=== PATIENT | female | born 1990 | race African-American/Black ===

== ENCOUNTER 2018-06-30 12:03 | Observation (INO) | payer BC, OTHER ==
--- NOTE | 2018-06-30 12:58 | PDOC ---
History of Present Illness - General Chief Complaint: Vaginal Bleeding Stated Complaint: SENT BY PCP VAGINAL BLEEDING Time Seen by Provider: 06/30/18 12:46 History Source: Patient Past History - Past Medical History Allergies/Adverse Reactions: Allergies Allergy/AdvReac Type Severity Reaction Status Date / Time fruits Allergy Uncoded 06/30/18 12:09 COPD: No Other medical history: uteterine fibroids - Surgical History Abdominal Surgery: Yes (lipo) - Suicide/Smoking/Psychosocial Hx Smoking History: Never smoked Information on smoking cessation initiated: No Hx Alcohol Use: No Drug/Substance Use Hx: No Review of Systems - Review of Systems Constitutional: Yes: Weakness Respiratory: No: Shortness of Breath ABD/GI: No: Nausea, Vomiting, Abdominal cramping *Physical Exam - Vital Signs Last Vital Signs Temp Pulse Resp BP Pulse Ox 98.4 F 98 H 18 138/94 100 06/30/18 12:06 06/30/18 12:06 06/30/18 12:06 06/30/18 12:06 06/30/18 12:06 - Physical Exam General Appearance: Yes: Appropriately Dressed. No: Apparent Distress HEENT: positive: Normal Voice Neck: positive: Supple Respiratory/Chest: negative: Respiratory Distress Gastrointestinal/Abdominal: positive: Soft. negative: Tender Integumentary: positive: Dry, Warm Neurologic: positive: Fully Oriented, Alert, Normal Mood/Affect ED Treatment Course - LABORATORY CBC & Chemistry Diagram: 06/30/18 13:18 06/30/18 13:18 Medical Decision Making - Medical Decision Making 06/30/18 12:56 28 yo F, , dx w/ fibroids on US > 2 weeks ago (had 6 fibroids per pt), anemia (no transfusion), not on iron pills but currently taking taking OTC iron supplements, ow here w/ menorrhagia. States she got her menses at normal time but bleeding for > 1 week (usually last for 5 days). States she is using ~6-7 pads/24 hrs. Reports weakness since yesterday. No dizziness, syncope, SOB or sig abd pain. States she walked into her PEDIATRIC CLINICAL NURSE SPECIALIST this a.m. and was sent to the ED see exam Weakness in setting of menorrhagia Dx w/ multiple fibroids on recent US Taking OTC iron supplements for known anemia (no transfusion) Stable and well dulce -labs pending 06/30/18 13:06 06/30/18 13:47 Hgb 7.6. Case d/w Dr Rogers of PEDIATRIC CLINICAL NURSE SPECIALIST who wants patient to be transfused with 2 units. Pt made aware. Will transfuse and admit to OBs given symptomatic and 1st time transfused *DC/Admit/Observation/Transfer Diagnosis at time of Disposition: DUB (dysfunctional uterine bleeding), Fibroids Anemia Qualifiers: Anemia type: unspecified type Qualified Code(s): D64.9 - Anemia, unspecified - Discharge Dispostion Condition at time of disposition: Fair Decision to Admit order: Yes - Referrals - Patient Instructions - Post Discharge Activity
[2018-06-30 13:26] LABS: BASO % 0.9 % (0-2.0); EOS % 5.3 % (0-4.5); HEMATOCRIT 25.1 % (32.4-45.2); HEMOGLOBIN 7.6 GM/dL (10.7-15.3); LYMPH % 53.7 % (8-40); MCHC 30.3 g/dl (32.0-36.0); MEAN CELL VOLUME 64.7 fl (80-96); MEAN PLT VOLUME 6.9 fl (7.5-11.1); MONO % 8.4 % (3.8-10.2); NEUT % 31.7 % (42.8-82.8); PLATELET COUNT 611 K/MM3 (134-434); RBC 3.88 M/mm3 (3.60-5.2); WHITE BLOOD COUNT 4.9 K/mm3 (4.0-10.0)
[2018-06-30 13:29] LABS: MCH 19.6 pg (25.7-33.7)
[2018-06-30 13:41] LABS: INR 1.13 (0.83-1.09); PROTHROMBIN TIME (PATIENT) 13.4 SEC (9.7-13.0)
[2018-06-30 13:53] LABS: ALBUMIN 3.5 g/dl (3.4-5.0); ALK PHOS 48 U/L (45-117); ANION GAP 6 MMOL/L (8-16); BILIRUBIN,TOTAL 0.1 mg/dL (0.2-1); BLOOD UREA NITROGEN 9 mg/dL (7-18); CALCIUM 8.9 mg/dL (8.5-10.1); CHLORIDE 106 mmol/L (98-107); CO2 27 mmol/L (21-32); CREATININE 0.5 mg/dL (0.55-1.3); GLUCOSE,RANDOM 88 mg/dL (74-106); POTASSIUM 4.1 mmol/L (3.5-5.1); SGOT/AST 19 U/L (15-37); SGPT/ALT 23 U/L (13-61); SODIUM 140 mmol/L (136-145); TOT PROT 7.7 g/dl (6.4-8.2)
[2018-06-30 14:32] LABS: ANISOCYTOSIS 2+; MACROCYTOSIS 0; OVALOCYTE 2+; PLATELET ESTIMATE INCREASED
[2018-06-30] MEDS ORDERED: SENNOSIDES 8.6MG TABLET (FP) PO PRN (17:18)
[2018-06-30] MEDS ORDERED: ACETAMINOPHEN 325 MG TABLET (FP) PO PRN (17:18)
[2018-06-30] MEDS ORDERED: DOCUSATE SODIUM 100 MG CAPSULE (FP) PO PRN (17:18)
[2018-06-30] MEDS ORDERED: LACTATED RINGERS SOLUTION 1,000 ML IV SCH (17:30)
--- NOTE | 2018-06-30 17:30 | HP ---
Admitting History and Physical - Admission Chief Complaint: symptomatic anemia History of Present Illness: 28 year old F with h/o uterine fibroids presents to ED for evaluation as recommended by her OBGYN due to persistent vaginal bleeding. Ms. Pittman reports symptoms began with her last menstrual cycle on May 24 where she bled for 21 continuous days. She was evaluated by ACCOUNT SERVICES REPRESENTATIVE who prescribed Tranexamic 650mg 2tabs TID to promote cessation of excessive bleeding. Her bleeding resolved for 7days, but returned on 06/29 and was associated with pelvic pain, dizziness, fatigue, SOB and the passage of large clots. Pt phoned her ACCOUNT SERVICES REPRESENTATIVE who recommended ED visit. In ED: Vitals: BP 138/94, HR 98, RR 18, T 98.4, O2sat 100% H/H 7.6/25.1 Ed provider reviewed case d/w Dr Rogers from ACCOUNT SERVICES REPRESENTATIVE who recommends admission for 2 PRBC infusion History Source: Patient Limitations to Obtaining History: No Limitations - Past Medical History ...LMP: 06/30/18 ...: No (serum preg test: negative) - Past Surgical History Additional Past Surgical History: Liposuction and tummy tuck 2014 Right rotator cuff repair 2013 2013 breast reduction 2010 - Smoking History Smoking history: Never smoked Have you smoked in the past 12 months: No - Alcohol/Substance Use Hx Alcohol Use: Yes (socially) History of Substance Use: reports: None - Social History Usual Living Arrangement: Yes: With Child ADL: Independent Occupation: [employer] History of Recent Travel: No Home Medications - Allergies Allergies/Adverse Reactions: Allergies Allergy/AdvReac Type Severity Reaction Status Date / Time No Known Drug Allergies Allergy Verified 06/30/18 17:30 fruits Allergy Uncoded 06/30/18 20:21 - Home Medications Home Medications: Ambulatory Orders Tranexamic Acid 650 mg PO TID 06/30/18 Family Disease History - Family Disease History Family Disease History: Other: Grandparent (Paternal grandparents with DMII/HTN) , Father (alive (50) HTN, pre-DM), Mother (alive (49) DMII), Brother (alive (22 ) well) Review of Systems - Review of Systems Constitutional: reports: Lethargy Eyes: reports: No Symptoms HENT: reports: No Symptoms Neck: reports: No Symptoms Cardiovascular: reports: Shortness of Breath Respiratory: reports: SOB on Exertion Gastrointestinal: reports: No Symptoms Genitourinary: reports: Vaginal Bleeding Breasts: reports: No Symptoms Reported Musculoskeletal: reports: No Symptoms Integumentary: reports: No Symptoms Neurological: reports: No Symptoms Endocrine: reports: No Symptoms Hematology/Lymphatic: reports: No Symptoms Psychiatric: reports: No Symptoms Physical Examination Vital Signs: Vital Signs Temperature 98.4 F 06/30/18 12:06 Pulse Rate 98 H 06/30/18 12:06 Respiratory Rate 18 06/30/18 12:06 Blood Pressure 138/94 06/30/18 12:06 O2 Sat by Pulse Oximetry (%) 100 06/30/18 12:06 Constitutional: Yes: Well Nourished, No Distress, Calm Eyes: Yes: Conjunctiva Clear, EOM Intact, PERRL HENT: Yes: Atraumatic, Normocephalic Neck: Yes: Supple, Trachea Midline Cardiovascular: Yes: Regular Rate and Rhythm Respiratory: Yes: Regular, CTA Bilaterally Gastrointestinal: Yes: Normal Bowel Sounds, Soft Musculoskeletal: Yes: WNL Extremities: Yes: WNL Edema: No Peripheral Pulses WNL: Yes Peripheral Pulses: Left Radial: 2+, Right Radial: 2+ Integumentary: Yes: WNL Neurological: Yes: Alert, Oriented ...Motor Strength: WNL Psychiatric: Yes: Alert, Oriented Labs: CBC, BMP 06/30/18 13:18 06/30/18 13:18 Problem List - Problems (1) Prophylactic measure Assessment/Plan: OOB to chair Ambulate as tolerated bowel regimen with senna and colace Code(s): Z29.9 - ENCOUNTER FOR PROPHYLACTIC MEASURES, UNSPECIFIED (2) Anemia Assessment/Plan: 2 units PRBC repeat CBC at midnight start ferrous gluconate tabs Code(s): D64.9 - ANEMIA, UNSPECIFIED Qualifiers: Anemia type: unspecified type Qualified Code(s): D64.9 - Anemia, unspecified (3) DUB (dysfunctional uterine bleeding) Assessment/Plan: pt has good f/u with ACCOUNT SERVICES REPRESENTATIVE, she has scheduled myomectomy August 2018 Nursing staff to monitor severity of bleeding with pad count Code(s): N93.8 - OTHER SPECIFIED ABNORMAL UTERINE AND VAGINAL BLEEDING Assessment/Plan DISPO: Home when H/H > 9.0 Code status: Full Visit type - Emergency Visit Emergency Visit: Yes ED Registration Date: 06/30/18 Care time: The patient presented to the Emergency Department on the above date and was hospitalized for further evaluation of their emergent condition. - New Patient This patient is new to me today: Yes Date on this admission: 06/30/18 - Critical Care Critical Care patient: No
[2018-06-30 17:39] VITALS: BMI 29.9
[2018-06-30 23:35] LABS: EPI CELLS 1.5 /HPF (0-5/HPF); URINE APPEARANCE TURBID; URINE BACTERIA 36.2 /hpf (NEGATIVE); URINE BILIRUBIN NEGATIVE (NEGATIVE); URINE CASTS 3 /lpf (0-8); URINE COLOR YELLOW; URINE GLUCOSE (UA) NEGATIVE (NEGATIVE); URINE KETONE NEGATIVE (NEGATIVE); URINE LEUK ESTERASE NEGATIVE (NEGATIVE); URINE NITRITE NEGATIVE (NEGATIVE); URINE PROTEIN NEGATIVE (NEGATIVE); URINE RBC 4 /hpf (0-4); URINE WBC 2 /hpf (0-5)
[2018-07-01 02:03] LABS: HEMATOCRIT 28.3 % (32.4-45.2); HEMOGLOBIN 8.9 GM/dL (10.7-15.3); MCH 21.7 pg (25.7-33.7); MCHC 31.6 g/dl (32.0-36.0); MEAN CELL VOLUME 68.6 fl (80-96); MEAN PLT VOLUME 7.4 fl (7.5-11.1); PLATELET COUNT 551 K/MM3 (134-434); RBC 4.12 M/mm3 (3.60-5.2); RDW 22.9 % (11.6-15.6); WHITE BLOOD COUNT 6.4 K/mm3 (4.0-10.0)
[2018-07-01 07:10] LABS: HEMATOCRIT 29.7 % (32.4-45.2); HEMOGLOBIN 9.6 GM/dL (10.7-15.3); MCH 21.7 pg (25.7-33.7); MCHC 32.2 g/dl (32.0-36.0); MEAN CELL VOLUME 67.4 fl (80-96); MEAN PLT VOLUME 7.2 fl (7.5-11.1); PLATELET COUNT 558 K/MM3 (134-434); RDW 23.2 % (11.6-15.6); WHITE BLOOD COUNT 5.6 K/mm3 (4.0-10.0)
[2018-07-01 07:58] LABS: ANION GAP 7 MMOL/L (8-16); BLOOD UREA NITROGEN 12 mg/dL (7-18); CALCIUM 9.1 mg/dL (8.5-10.1); CHLORIDE 108 mmol/L (98-107); CO2 25 mmol/L (21-32); CREATININE 0.5 mg/dL (0.55-1.3); GLUCOSE,RANDOM 70 mg/dL (74-106); MAGNESIUM 2.2 mg/dL (1.8-2.4); PHOSPHOROUS 4.8 mg/dL (2.5-4.9); POTASSIUM 4.2 mmol/L (3.5-5.1); SODIUM 140 mmol/L (136-145)
--- NOTE | 2018-07-01 08:52 | DS ---
Physical Exam: SUBJECTIVE: Patient seen and examined. asymptomatic.changed pad 2x since last night. bleeding slowed and no clots seen. denies Cp, SOB, fever, chills, N/V/C/D , or fatigue. this was her first blood transfusion OBJECTIVE: Vital Signs Period Temp Pulse Resp BP Sys/Ortiz Pulse Ox Last 24 Hr 97.5 F-98.6 F 72-98 16-18 113-138/60-94 98-100 PHYSICAL EXAM GENERAL: The patient is awake, alert, and fully oriented, in no acute distress. HEAD: Normal with no signs of trauma. EYES: PERRL, extraocular movements intact, sclera anicteric, conjunctiva clear. ENT: Ears normal, nares patent, oropharynx clear without exudates, moist mucous membranes. NECK: Trachea midline, full range of motion, supple. LUNGS: Breath sounds equal, clear to auscultation bilaterally, no wheezes, no crackles, no accessory muscle use. HEART: Regular rate and rhythm, S1, S2 without murmur, rub or gallop. ABDOMEN: Soft, nontender, nondistended, normoactive bowel sounds, no guarding, no rebound, no hepatosplenomegaly, no masses. EXTREMITIES: 2+ pulses, warm, well-perfused, no edema. NEUROLOGICAL: Cranial nerves II through XII grossly intact. Normal speech, gait not observed. PSYCH: Normal mood, normal affect. SKIN: Warm, dry, normal turgor, no rashes or lesions noted. LABS Laboratory Results - last 24 hr 06/30/18 06/30/18 06/30/18 13:18 13:18 13:18 WBC 4.9 RBC 3.88 Hgb 7.6 L Hct 25.1 L MCV 64.7 L MCH 19.6 L MCHC 30.3 L RDW 20.0 H Plt Count 611 H MPV 6.9 L Absolute Neuts (auto) 1.6 Neutrophils % 31.7 L Lymphocytes % 53.7 H Monocytes % 8.4 Eosinophils % 5.3 H Basophils % 0.9 Nucleated RBC % 0 Hypochromia 2+ Platelet Estimate Increased Polychromasia 0 Poikilocytosis 2+ Anisocytosis 2+ Microcytosis 2+ Macrocytosis 0 Ovalocytes 2+ PT with INR INR Sodium 140 Potassium 4.1 Chloride 106 Carbon Dioxide 27 Anion Gap 6 L BUN 9 Creatinine 0.5 L Creat Clearance w eGFR 145.87 Random Glucose 88 Calcium 8.9 Phosphorus Magnesium Total Bilirubin 0.1 L AST 19 ALT 23 Alkaline Phosphatase 48 Total Protein 7.7 Albumin 3.5 TSH Serum , Qual Urine Color Urine Appearance Urine pH Ur Specific [place] Urine Protein Urine Glucose (UA) Urine Ketones Urine Blood Urine Nitrite Urine Bilirubin Urine Urobilinogen Ur Leukocyte Esterase Urine WBC (Auto) Urine RBC (Auto) Urine Casts (Auto) U Epithel Cells (Auto) Urine Bacteria (Auto) Blood Type O POSITIVE Antibody Screen Negative Crossmatch See Detail 06/30/18 06/30/18 06/30/18 13:18 13:18 14:34 WBC RBC Hgb Hct MCV MCH MCHC RDW Plt Count MPV Absolute Neuts (auto) Neutrophils % Lymphocytes % Monocytes % Eosinophils % Basophils % Nucleated RBC % Hypochromia Platelet Estimate Polychromasia Poikilocytosis Anisocytosis Microcytosis Macrocytosis Ovalocytes PT with INR 13.40 H INR 1.13 H Sodium Potassium Chloride Carbon Dioxide Anion Gap BUN Creatinine Creat Clearance w eGFR Random Glucose Calcium Phosphorus Magnesium Total Bilirubin AST ALT Alkaline Phosphatase Total Protein Albumin TSH Serum , Qual Negative Urine Color Urine Appearance Urine pH Ur Specific [place] Urine Protein Urine Glucose (UA) Urine Ketones Urine Blood Urine Nitrite Urine Bilirubin Urine Urobilinogen Ur Leukocyte Esterase Urine WBC (Auto) Urine RBC (Auto) Urine Casts (Auto) U Epithel Cells (Auto) Urine Bacteria (Auto) Blood Type O POSITIVE Antibody Screen Crossmatch 06/30/18 07/01/18 07/01/18 23:00 01:50 06:30 WBC 6.4 5.6 RBC 4.12 4.40 Hgb 8.9 L 9.6 L Hct 28.3 L 29.7 L MCV 68.6 L 67.4 L MCH 21.7 L D 21.7 L MCHC 31.6 L 32.2 RDW 22.9 H 23.2 H Plt Count 551 H 558 H MPV 7.4 L 7.2 L Absolute Neuts (auto) Neutrophils % Lymphocytes % Monocytes % Eosinophils % Basophils % Nucleated RBC % Hypochromia Platelet Estimate Polychromasia Poikilocytosis Anisocytosis Microcytosis Macrocytosis Ovalocytes PT with INR INR Sodium Potassium Chloride Carbon Dioxide Anion Gap BUN Creatinine Creat Clearance w eGFR Random Glucose Calcium Phosphorus Magnesium Total Bilirubin AST ALT Alkaline Phosphatase Total Protein Albumin TSH Serum , Qual Urine Color Yellow Urine Appearance Turbid Urine pH 8.0 Ur Specific [place] 1.016 Urine Protein Negative Urine Glucose (UA) Negative Urine Ketones Negative Urine Blood 2+ H Urine Nitrite Negative Urine Bilirubin Negative Urine Urobilinogen 1.0 Ur Leukocyte Esterase Negative Urine WBC (Auto) 2 Urine RBC (Auto) 4 Urine Casts (Auto) 3 U Epithel Cells (Auto) 1.5 Urine Bacteria (Auto) 36.2 Blood Type Antibody Screen Crossmatch 07/01/18 06:30 WBC RBC Hgb Hct MCV MCH MCHC RDW Plt Count MPV Absolute Neuts (auto) Neutrophils % Lymphocytes % Monocytes % Eosinophils % Basophils % Nucleated RBC % Hypochromia Platelet Estimate Polychromasia Poikilocytosis Anisocytosis Microcytosis Macrocytosis Ovalocytes PT with INR INR Sodium 140 Potassium 4.2 Chloride 108 H Carbon Dioxide 25 Anion Gap 7 L BUN 12 Creatinine 0.5 L Creat Clearance w eGFR 145.87 Random Glucose 70 L Calcium 9.1 Phosphorus 4.8 Magnesium 2.2 Total Bilirubin AST ALT Alkaline Phosphatase Total Protein Albumin TSH 1.95 Serum , Qual Urine Color Urine Appearance Urine pH Ur Specific [place] Urine Protein Urine Glucose (UA) Urine Ketones Urine Blood Urine Nitrite Urine Bilirubin Urine Urobilinogen Ur Leukocyte Esterase Urine WBC (Auto) Urine RBC (Auto) Urine Casts (Auto) U Epithel Cells (Auto) Urine Bacteria (Auto) Blood Type Antibody Screen Crossmatch HOSPITAL COURSE: Date of Admission:06/30/18 Date of Discharge: 07/01/18 admitting diagnosis: Symptomatic anemia, Dysfuctional uterine bleeding PRe hospital course 28 year old F with h/o uterine fibroids presents to ED for evaluation as recommended by her OBGYN due to persistent vaginal bleeding. Ms. Pittman reports symptoms began with her last menstrual cycle on May 24 where she bled for 21 continuous days. She was evaluated by REHABILITATION ASSISTANT who prescribed Tranexamic 650mg 2tabs TID to promote cessation of excessive bleeding. Her bleeding resolved for 7days, but returned on 06/29 and was associated with pelvic pain, dizziness, fatigue, SOB and the passage of large clots. Pt phoned her REHABILITATION ASSISTANT who recommended ED visit. Subsequent hospital course Medicine observation. received 2 units PRBC with good response. bleeding improved. was d/c home on iron supplements. instructed to contine Tranexamic by OB as pt has planned vacation next week and then plan for hysterectomy on her return. advised to get cbc count prior to leaving and side effect of anemia. Minutes to complete discharge: 40 Discharge Summary Reason For Visit: DYSFUNCTIONAL UTERINE BLEEDING,ANEMIA Current Active Problems Anemia (Acute) DUB (dysfunctional uterine bleeding) (Acute) Fibroids (Acute) Prophylactic measure (Acute) Condition: Improved - Instructions Diet, Activity, Other Instructions: You were observed in the hospital because you were anemia requiring blood transfusion. You received 2 units of blood and responded well Your bleeding slowed down. You are being started on iron supplementation,. do not take this on an empty stomach as it can cause nausea. Can also cause constipation and black stools. ensure you are having regular bowel movements while taking this medication. stool softeners have been provided. Have your iron studies checked in 3 months to see if you need to continue this medication. Have your blood counts checked prior to your vacation to make sure your blood counts are stable and not requiring more blood. Also continue Tranexamic as instructed by OB If you develop extreme fatigue, difficulty breathing or chest pain return to the ER. Call your OB if your bleeding worsens for further instruction. You will also need to follow up with them for surgery, Attempts are being made to make it earlier than planned. Referrals: Juanita Rogers MD [Staff Physician] - Disposition: HOME - Home Medications Comprehensive Discharge Medication List: Ambulatory Orders Tranexamic Acid 650 mg PO TID 06/30/18 Ferrous Gluconate [Fergon -] 324 mg PO DAILY #30 tab 07/01/18 Sennosides [Senna -] 2 tab PO HS PRN #60 tablet 07/01/18 This patient is new to me today: Yes Date on this admission: 07/01/18 Emergency Visit: Yes ED Registration Date: 06/30/18 Care time: The patient presented to the Emergency Department on the above date and was hospitalized for further evaluation of their emergent condition. Critical Care patient: No - Discharge Referral Referred to [facility] No
--- NOTE | 2018-07-01 08:54 | CON.OBG ---
Consult Consult Specialty:: Gynecology Reason for Consultation:: Menorrhagia. Fibroids - History of Present Illness Chief Complaint: Anemia. Menorrhagia. fibroids History of Present Illness: 28 yo sent in from dental front office assistant office due to dizziness and vaginal bleeding for blood transfusion. pt with hx of fibroids scheduled for surgery in August - History Source History Provided By: Patient Limitations to Obtaining History: No Limitations - Past Medical History ...LMP: 06/30/18 ...LMP Comment: started over 1 week ago, still on ...: No (serum preg test: negative) Heme/Onc: Yes: Anemia - Past Surgical History Past Surgical History: Yes: None - Alcohol/Substance Use Hx Alcohol Use: Yes (socially) History of Substance Use: reports: None - Smoking History Smoking history: Never smoked Have you smoked in the past 12 months: No - Social History ADL: Independent Occupation: [employer] History of Recent Travel: No Home Medications - Allergies Allergies/Adverse Reactions: Allergies Allergy/AdvReac Type Severity Reaction Status Date / Time No Known Drug Allergies Allergy Verified 06/30/18 17:30 fruits Allergy Uncoded 06/30/18 20:21 - Home Medications Home Medications: Ambulatory Orders Tranexamic Acid 650 mg PO TID 06/30/18 Ferrous Gluconate [Fergon -] 324 mg PO DAILY #30 tab 07/01/18 Sennosides [Senna -] 2 tab PO HS PRN #60 tablet 07/01/18 Family Disease History - Family Disease History Family Disease History: Other: Grandparent (Paternal grandparents with DMII/HTN) , Father (alive (50) HTN, pre-DM), Mother (alive (49) DMII), Brother (alive (22 ) well) Review of Systems - Review of Systems Constitutional: reports: No Symptoms Eyes: reports: No Symptoms HENT: reports: No Symptoms Neck: reports: No Symptoms Cardiovascular: reports: No Symptoms Respiratory: reports: No Symptoms Gastrointestinal: reports: No Symptoms Genitourinary: reports: No Symptoms Breasts: reports: No Symptoms Reported Musculoskeletal: reports: No Symptoms Integumentary: reports: No Symptoms Neurological: reports: No Symptoms Endocrine: reports: No Symptoms Hematology/Lymphatic: reports: No Symptoms Psychiatric: reports: No Symptoms Physical Exam-SUPERVISOR DITCHING Vital Signs: Vital Signs Temperature 97.9 F 07/01/18 05:00 Pulse Rate 72 07/01/18 05:00 Respiratory Rate 18 07/01/18 05:00 Blood Pressure 113/68 07/01/18 05:00 O2 Sat by Pulse Oximetry (%) 100 07/01/18 00:53 Constitutional: Yes: Well Nourished, No Distress Cardiovascular: Yes: WNL Respiratory: Yes: WNL Gastrointestinal: Yes: WNL, Normal Bowel Sounds, Soft, Palpable Mass Uterus: Yes: Enlarged ....Post : Yes: Uterus firm Breast(s): Yes: WNL Musculoskeletal: Yes: WNL Extremities: Yes: WNL Edema: No Neurological: Yes: WNL, Alert, Oriented Labs: CBC, BMP 07/01/18 06:30 07/01/18 06:30 Problem List - Problems (1) Anemia Code(s): D64.9 - ANEMIA, UNSPECIFIED Qualifiers: Anemia type: unspecified type Qualified Code(s): D64.9 - Anemia, unspecified (2) Fibroids Code(s): D21.9 - BENIGN NEOPLASM OF CONNECTIVE AND OTHER SOFT TISSUE, UNSP Assessment/Plan Menorrhagia Fibroids Anemia - SP transfusion Plan DC home iron fu in office
[2018-07-01] MEDS ORDERED: PT OWN MED DRAWER 7, Y5N ONE (09:01)
[2018-07-01 09:52] VITALS: BP 114/63; PULSE 83; TEMP 98.2
[2018-07-01] MEDS ORDERED: FERROUS GLUCONATE 324 MG TAB (FP) PO SCH (10:00)
[2018-07-01] MEDS ORDERED: MULTIVITAMINS (DAILY MVI) TABLET (FP) PO SCH (10:00)
== END 2018-07-01 10:02 | disposition home or self-care (01) ==
LOC: JER 12:03 → JERBED 14:17 → J7W 15:06
PROVIDERS: ADMIT Internal Medicine; ATTEND Internal Medicine
DX: N93.8 Other specified abnormal uterine and vaginal bleeding (principal); D25.9 Leiomyoma of uterus, unspecified; D64.9 Anemia, unspecified
CPT/HCPCS: 36415; 36430; 36511; 80048; 80053; 81003; 83735; 84100; 84443; 84703; 85025; 85027; 85610; 86850; 86900; 86901; 86922; 99285-25; G0378; P9038; P9058

== ENCOUNTER 2018-07-22 06:06 | Inpatient (IN) | payer BC, OTHER ==
[2018-07-20 16:07] VITALS: BMI 29.3
[2018-07-22] MEDS ORDERED: VASOPRESSIN 20 UNITS/ML VIAL IV ONE ×2 (07:13)
[2018-07-22] MEDS ORDERED: ROPIVACAINE HCL 0.5% 30ML VIAL ONE (07:18)
[2018-07-22] MEDS ORDERED: MIDAZOLAM HCL 2 MG/2 ML SINGLE DOSE VIAL ONE ×2 (07:19)
--- NOTE | 2018-07-22 08:01 | HP ---
Satellite [facility] - Chief Complaint Chief Complaint: Leiomyomatous Uterus History Source: Patient - Past Medical History Allergies/Adverse Reactions: Allergies Allergy/AdvReac Type Severity Reaction Status Date / Time almond Allergy "throat Verified 07/20/18 16:08 closes" No Known Drug Allergies Allergy Verified 07/20/18 16:08 stone fruit Allergy "throat Uncoded 07/20/18 16:08 closes" ...LMP: 06/24/18 Heme/Onc: Yes: Anemia - Current Medications Current Medications: Home Medications Medication Instructions Recorded Ferrous Gluconate [Fergon -] 324 mg PO DAILY #30 tab 07/01/18 Sennosides [Senna -] 2 tab PO HS PRN #60 tablet 07/01/18 Satellite Physical Exam - Physical Examination Vital Signs: Vital Signs Period Temp Pulse Resp BP Sys/Ortiz Pulse Ox Last 24 Hr 98.5 F 104 20 112/71 99 General Appearance: Well Nourished, Well Developed Lung: Clear to auscultation Heart: Regular rate & rhythm Breasts: Soft, Non-Tender Abdomen: Soft, No tenderness Extremities: No edema Pelvic Exam: Within normal limits External Genitalia, Within normal limits Vagina, Within normal limits Cervix, Within normal limits [place], Other Uterus (18 cm) Neurological: Intact, Alert, Oriented Satellite Impression/Plan - Impression/Plan Impression: Leiomyomatous Uterus. Anemia. Menorrhagia Operative Procedure: Abdominal Myomectomy Date to be Performed: 07/22/18
[2018-07-22] MEDS ORDERED: fentaNYL CITRATE 250 MCG/5 ML VIAL ONE (08:03)
[2018-07-22] MEDS ORDERED: ROCURONIUM BROMIDE 50 MG/5 ML VIAL ONE (08:03)
[2018-07-22] MEDS ORDERED: PROPOFOL 20 ML ONE ×2 (08:04)
[2018-07-22] MEDS ORDERED: SUCCINYLCHOLINE CHLORIDE 200 MG/10 ML VIAL ONE (08:04)
[2018-07-22] MEDS ORDERED: ceFAZolin SODIUM 1 GM VIAL IVPB ONE (08:08)
[2018-07-22] MEDS ORDERED: DEXAMETHASONE SOD PHOSPHATE 4 MG/1 ML VIAL ONE (08:14)
[2018-07-22] MEDS ORDERED: DESFLURANE GAS 240 ML BOTTLE IH ONE (08:18)
[2018-07-22] MEDS ORDERED: ONDANSETRON 4 MG/2 ML VIAL IVPUSH PRN (09:07)
[2018-07-22] MEDS ORDERED: GLYCOPYRROLATE 0.2 MG/1 ML VIAL ONE (09:10)
[2018-07-22] MEDS ORDERED: NEOSTIGMINE METHYLSULFATE 0.5 MG/ML - 10 ML MDV ONE (09:10)
[2018-07-22] MEDS ORDERED: HYDROmorphone *PCA* 10MG/50ML DISP.SYRIN PCA SCH (09:15)
[2018-07-22] MEDS ORDERED: KETOROLAC TROMETHAMINE 30 MG/1 ML VIAL ONE ×2 (09:19→09:23)
--- NOTE | 2018-07-22 09:48 | OP ---
Operative Note - Note: Operative Date: 07/22/18 Pre-Operative Diagnosis: Leiomyomas of uterus Operation: Open abdominal myomectomy Findings: as dictated Post-Operative Diagnosis: Same as Pre-op Surgeon: Juanita Rogers Supervisor Tumblers: Teresa King Anesthesiologist/MAINFRAME PROGRAMMER ANALYST: Romy Colindres Anesthesia: General Specimens Removed: Uterine myomas Estimated Blood Loss (mls): 50 (ml) Fluid Volume Replaced (mls): 1 (L LR) Operative Report Dictated: Yes
--- NOTE | 2018-07-22 09:49 | SURG ---
Surgery Credit Risk Analytics Manager Note Credit Risk Analytics Manager: Teresa King PA-C (Suzy) Date of Service: 07/22/18 Diagnosis: Leiomyomas of uterus Procedure: Open abdominal myomectomy Marcelino catheter placed by GIGI in OR I was present for the entirety of the operative procedure. For further detail, please refer to operative report. Visit type - Case Type Case Type: Scheduled - Emergency Emergency Visit: No - New patient This patient is new to me today: Yes Date on this admission: 07/22/18 - Critical Care Critical Care patient: No
[2018-07-22] MEDS ORDERED: HYDROmorphone *PCA* 10MG/50ML DISP.SYRIN PCA ONE (09:50)
[2018-07-22] MEDS: HYDROmorphone *PCA* 10MG/50ML DISP.SYRIN PCA SCH (09:50)
[2018-07-22] MEDS ORDERED: CEFAZOLIN 2 GM/D5W 2 GM/50 ML ML IVPB SCH (10:00)
[2018-07-22] MEDS ORDERED: BISACODYL 5 MG TABLET.DR (FP) PO PRN (10:29)
--- NOTE | 2018-07-22 11:10 | OP ---
DATE OF OPERATION: 07/22/2018 PREOPERATIVE DIAGNOSES: Menorrhagia, anemia, and leiomyomatous uterus. OPERATION: Abdominal myomectomy. POSTOPERATIVE DIAGNOSES: Menorrhagia, anemia, leiomyomatous uterus, intramural and subserosal myomas. DESCRIPTION OF PROCEDURE: The patient was taken to the operating room and placed in supine position, prepped and draped in the usual sterile fashion. A time-out was performed in accordance with hospital regulation. Pfannenstiel skin incision was made through the patient's previous abdominoplasty incision. Cautery was then used to go through the layers of the abdominal wall to the level of the fascia. The fascia was cut in the midline, and cautery was then used to open the fascia in smiling fashion. Kochers were then used to bluntly and sharply dissect the rectus muscle off the fascia. Muscle was split in the midline. Peritoneal cavity was then entered and carried upward and downward. A large 19-cm leiomyomatous uterus was exteriorized. Tourniquets were placed in the clear space of the broad ligament, and Valery clamps were used to secure it. Pitressin was infiltrated in the anterior aspect of the uterus. A horizontal incision was made in the more fundal region of the uterus. Cautery was then used to go down to the layers of the myoma. Myoma was then enucleated out using sharp and blunt technique. An approximately 9-cm myoma was exteriorized. Attention was then drawn to the left aspect of the uterus where two 4-cm myomas were noted in the anterior aspect of the uterus. Vertical incision was made approximately 6 cm in size, and myomas were then enucleated out using blunt and sharp technique. Some intramural myomas were then also enucleated out of the large fundal incision using sharp technique with the cautery. The towel clip was then used to elevate the myoma and enucleate it out using sharp and blunt technique. The uterus was palpated and found to have no myomas after these approximately 8 or 9 myomas were removed. Incisions were then closed in the muscle using 0 Vicryl suture continuous and locking, V-Lock suture on the serosal skin. Hemostasis was achieved. Interceed was then placed and secured with free ties around all incisions were covered. Uterus was then anteriorized. Abdominal cavity cleaned with clean lap pads. Peritoneum was then closed using 0 Vicryl suture in continuous fashion. The fascia was then closed using 0 Vicryl suture in continuous fashion in 2 parts. Subcutaneous was closed using 0 Biosyn suture in continuous fashion. The count was then closed using 4-0 Vicryl suture in a continuous subcuticular fashion. Estimated blood loss was 50 mL. The patient tolerated the procedure well. Tourniquet had been removed prior to the close of the case, and all packing and count was noted to be normal. The patient tolerated the procedure well and was taken to the recovery room in stable condition. Also abdominal sweep had been done. RONNY RODGERS M.D. [id number]
[2018-07-22] MEDS: LACTATED RINGERS SOLUTION 1,000 ML IV SCH ×2 (11:45→20:08)
[2018-07-22] MEDS: CEFAZOLIN 2 GM/D5W 2 GM/50 ML ML IVPB SCH ×2 (17:14→23:59)
[2018-07-22 20:16] LABS: BASO % 0.2 % (0-2.0); HEMATOCRIT 31.9 % (32.4-45.2); HEMOGLOBIN 9.9 GM/dL (10.7-15.3); LYMPH % 10.8 % (8-40); MCH 23.2 pg (25.7-33.7); MCHC 31.1 g/dl (32.0-36.0); MEAN CELL VOLUME 74.5 fl (80-96); MEAN PLT VOLUME 8.6 fl (7.5-11.1); MONO % 6.1 % (3.8-10.2); NEUT % 82.9 % (42.8-82.8); PLATELET COUNT 286 K/MM3 (134-434); RBC 4.28 M/mm3 (3.60-5.2); RDW 27.9 % (11.6-15.6); WHITE BLOOD COUNT 9.5 K/mm3 (4.0-10.0)
[2018-07-22 20:41] LABS: CALCIUM 8.4 mg/dL (8.5-10.1); CREATININE 0.4 mg/dL (0.55-1.3); POTASSIUM 3.8 mmol/L (3.5-5.1)
[2018-07-22] MEDS ORDERED: ZOLPIDEM TARTRATE 5 MG TABLET PO PRN ×2 (21:00→22:00)
[2018-07-23] MEDS: LACTATED RINGERS SOLUTION 1,000 ML IV SCH ×3 (03:10→17:00)
[2018-07-23] MEDS: HYDROmorphone *PCA* 10MG/50ML DISP.SYRIN PCA SCH (03:10)
[2018-07-23] MEDS ORDERED: oxyCODONE HCL 5 MG TABLET PO PRN ×2 (08:03)
[2018-07-23 08:08] LABS: BASO % 0.1 % (0-2.0); EOS % 0.2 % (0-4.5); HEMATOCRIT 29.3 % (32.4-45.2); HEMOGLOBIN 9.2 GM/dL (10.7-15.3); LYMPH % 13.4 % (8-40); MCH 23.2 pg (25.7-33.7); MCHC 31.4 g/dl (32.0-36.0); MEAN CELL VOLUME 73.7 fl (80-96); MEAN PLT VOLUME 7.8 fl (7.5-11.1); MONO % 7.2 % (3.8-10.2); NEUT % 79.1 % (42.8-82.8); PLATELET COUNT 278 K/MM3 (134-434); RBC 3.97 M/mm3 (3.60-5.2); RDW 27.7 % (11.6-15.6); WHITE BLOOD COUNT 8.1 K/mm3 (4.0-10.0)
--- NOTE | 2018-07-23 08:10 | PN ---
Progress Note (short form) - Note Progress Note: S/P Abdominal myomectomy under GA with bilateral TAP block uneventful.Patient stable and lying in bed comfortably but when asked c/o pain score of 6-7/10.She is also c/o dizziness as per nurse.So after discussing with PA and RN decided to Dc CASTING INSPECTOR later today and put patient on PRN pain medication.No any anesthesia related problem.Patient DC from the anesthesia care.
[2018-07-23 08:15] LABS: CALCIUM 8.3 mg/dL (8.5-10.1); CREATININE 0.4 mg/dL (0.55-1.3); POTASSIUM 3.5 mmol/L (3.5-5.1)
--- NOTE | 2018-07-23 08:37 | PN ---
Progress Note (short form) - Note Progress Note: 28 yo Para 1 status post abdominal myomectomy, seen and evaluated. She's lying in bed c/o incision pain. PE : Chest : CTA, no rales, no wheezing ABD : Dressing dry and intact EXT : No calf tenderness ASS/ Plan : Status post abdominal myomectomy D/C Marcelino catheter Regular diet Continue analgesia Ambulation
--- NOTE | 2018-07-23 09:25 | PN ---
Progress Note (short form) - Note Progress Note: POD 1, s/p Open abdominal myomectomy Pt seen and examined. States she is feeling "okay". Has some pain with movement , improved with CV/CVN CV TSC SYSTEM OPERATOR. Has not been oob, orellana in place. No flatus. Per RN, one episode of vaginal bleeding yesterday evening, none since. Denies cp/sob, n/v/d , calf pain. Vital Signs Temp 97.8 F 07/23/18 08:46 Pulse 102 H 07/23/18 08:46 Resp 20 07/23/18 08:46 BP 110/72 07/23/18 08:46 Pulse Ox 100 07/23/18 03:10 Intake & Output 07/22/18 07/22/18 07/23/18 11:59 23:59 11:59 Intake Total 8177 549 2224 Output Total 220 305 7329 Balance 1175 50 1050 Intake: IV 0149 543 8922 Lactated Ringers Solution 700 1200 1,000 ml @ 125 mls/hr IV ASDIR ASH Rx#: [id number] IVPB 150 Oral 800 Output: Urine 280 554 5609 Orellana 650 1100 Emesis 0 Estimated Blood Loss 50 Other: Voiding Method Indwelling Catheter Indwelling Catheter Bowel Movement No No CBC, BMP 07/23/18 07:30 07/23/18 07:30 Gen: awake, alert, nad Resp: CTA b/l anteriorly CV: tachy, s1s2 Abdo: soft +TTP appropriate to status. dressing with minimal dried serosanguinous drainage at distal aspect. Ext: scds in place and on 28 y/o F w/ h/o Leiomyomas now POD 1, s/p open abdominal myomectomy. Afebrile, low grade tachycardia likely secondary to pain. Remainder of VSS. H/H and remainder of labs stable. -Plan to d/c CV/CVN CV TSC SYSTEM OPERATOR early afternoon (d/w anesthesia) will order pain regimen of Oxycodone 5/10mg q4hrs prn, Ibuprofen 600mg q6hrs prn, Ofirmev 1g q6 hrs prn, 1mg Dilaudid IV for BTP -Will remove orellana early afternoon, TOV at that time -Advance diet when passing flatus -OOB as tolerated -SCDS/Lovenox for dvt prophylaxis -Bowel regimen -Monitor I&Os -Plan for d/c tomorrow d/w attending Dr Rogers
[2018-07-23] MEDS: ENOXAPARIN NA (PORCINE) 40 MG/0.4 ML DISP.SYRIN SQ SCH (09:35)
[2018-07-23] MEDS: FERROUS GLUCONATE 324 MG TAB (FP) PO SCH (09:35)
[2018-07-23] MEDS ORDERED: SENNOSIDES 8.6MG TABLET (FP) PO PRN (09:41)
[2018-07-23] MEDS ORDERED: HYDROmorphone HCl 2 MG/ML VIAL IVPUSH PRN (11:30)
[2018-07-23] MEDS ORDERED: POLYETHYLENE GLYCOL 3350 119 GM BTL PO PRN (11:31)
[2018-07-23] MEDS ORDERED: RANITIDINE HCL 150 MG TABLET (FP) PO PRN (11:32)
[2018-07-23] MEDS ORDERED: PCA PUMP KEY 1 EACH EACH ONE (11:44)
[2018-07-23] MEDS: ACETAMINOPHEN 1000 MG/100 ML VIAL (NON FORMULARY) IVPB SCH ×2 (11:47→17:40)
[2018-07-23] MEDS: SIMETHICONE 80 MG TAB.CHEW (FP) PO PRN ×2 (12:29→21:09)
[2018-07-23] MEDS: IBUPROFEN 800 MG/8 ML IJ IVPB PRN ×2 (14:21→20:30)
--- NOTE | 2018-07-23 15:45 | PN ---
Progress Note (short form) - Note Progress Note: Pt with dizziness Unable to go home Will admit to hospital
--- NOTE | 2018-07-23 15:57 | PATH ---
Surgical Pathology Report Patient Name: JENNIFER HERNANDEZ [facility]. Rec. #: [id number] /Age/Gender: 1990 (Age: 28) / F Account: [id number] Location: [facility] OBS/PBX INSTALLER Taken: 07/22/2018 Received: 07/22/2018 Reported: 07/23/2018 Physicians: Juanita Rogers M.D. Specimen(s) Received UTERINE MYOMAS Clinical History Leiomyoma of uterus Final Diagnosis UTERINE MYOMAS, ABDOMINAL MYOMECTOMY: LEIOMYOMATA WITH DEGENERATIVE CHANGE AND DYSTROPHIC CALCIFICATION (WEIGHT: 346 GRAMS). Electronically Signed Ilana Morgan M.D. Gross Description Received in formalin, labeled "uterine myomas" are nine light theodore, rubbery, nodular masses consistent with fibroids ranging to 2.2-11.3 cm in greatest dimension with an aggregate weight of 346 g. Sectioning the nodules reveals predominantly light theodore fibrous whorled cut surfaces. Two of the nodules appear calcified. The largest nodule shows areas of softening. No areas of hemorrhage or necrosis are identified. Extractor Loader And Unloader sections are submitted in five cassettes after brief decalcification of the calcified nodules. AE/07/22/2018 ebram/07/22/2018
[2018-07-24] MEDS: ACETAMINOPHEN 1000 MG/100 ML VIAL (NON FORMULARY) IVPB SCH ×2 (00:04→07:05)
[2018-07-24] MEDS: IBUPROFEN 800 MG/8 ML IJ IVPB PRN (04:23)
[2018-07-24 04:33] VITALS: TEMP 98.4
[2018-07-24] MEDS ORDERED: IBUPROFEN 600 MG TABLET (FP) PO PRN (08:24)
[2018-07-24] MEDS ORDERED: ACETAMINOPHEN 325 MG TABLET (FP) PO PRN (08:25)
--- NOTE | 2018-07-24 08:44 | PN ---
Progress Note (SOAP) - Subjective Chief Complaint: Pt doing well - Current Medications Current Medications: Active Medications Acetaminophen (Tylenol -) 650 mg PO Q4H PRN PRN Reason: PAIN LEVEL 1 - 3 Bisacodyl (Dulcolax -) 10 mg PO ONCE PRN PRN Reason: CONSTIPATION Enoxaparin Sodium (Lovenox -) 40 mg SQ DAILY [facility] Last Admin: 07/23/18 09:35 Dose: 40 mg Fentanyl (Sublimaze Injection -) 50 mcg IVPUSH [id number] PRN PRN Reason: PAIN-PACU ORDER X 4 DOSES ONLY Last Admin: 07/22/18 10:20 Dose: 50 mcg Ferrous Gluconate (Fergon -) 324 mg PO DAILY [facility] Last Admin: 07/23/18 09:35 Dose: 324 mg Hydromorphone HCl (Dilaudid Vial -) 1 mg IVPUSH Q6H PRN PRN Reason: PAIN LEVEL 7 - 10 Lactated Ringer's (Lactated Ringers Solution) 1,000 mls @ 125 mls/hr IV ASDIR [facility] Last Admin: 07/23/18 17:00 Dose: Not Given Ibuprofen (Caldolor Injection -) 600 mg IVPB Q6H PRN PRN Reason: PAIN LEVEL 4 - 6 Last Admin: 07/24/18 04:23 Dose: 600 mg Ibuprofen (Motrin -) 600 mg PO Q6H PRN PRN Reason: FEVER Ondansetron HCl (Zofran Injection) 4 mg IVPUSH Q6H PRN PRN Reason: NAUSEA AND/OR VOMITING Last Admin: 07/22/18 23:59 Dose: 4 mg Oxycodone HCl (Roxicodone -) 5 mg PO Q4H PRN PRN Reason: PAIN LEVEL 1 - 3 Oxycodone HCl (Roxicodone -) 10 mg PO Q4H PRN PRN Reason: PAIN LEVEL 4 - 6 Polyethylene Glycol (Miralax (For Daily Use) -) 17 gm PO DAILY PRN PRN Reason: CONSTIPATION Ranitidine HCl (Zantac -) 150 mg PO DAILY PRN PRN Reason: INDIGESTION Last Admin: 07/23/18 14:27 Dose: 150 mg Senna (Senna -) 2 tab PO HS PRN PRN Reason: CONSTIPATION Last Admin: 07/23/18 21:09 Dose: 2 tab Simethicone (Mylicon -) 80 mg PO Q4H PRN PRN Reason: GAS Last Admin: 07/23/18 21:09 Dose: 80 mg Zolpidem Tartrate (Ambien -) 5 mg PO HS PRN PRN Reason: INSOMNIA - Objective Vital Signs: Vital Signs Temperature 98.4 F 07/24/18 04:32 Pulse Rate 103 H 07/24/18 04:32 Respiratory Rate 20 07/24/18 04:32 Blood Pressure 111/69 07/24/18 04:32 O2 Sat by Pulse Oximetry (%) 97 07/24/18 04:33 Constitutional: Yes: Well Nourished, No Distress Neck: Yes: WNL Gastrointestinal: Yes: WNL, Normal Bowel Sounds, Soft Breast(s): Yes: WNL Musculoskeletal: Yes: WNL Extremities: Yes: WNL Edema: No Wound/Incision: Yes: Clean/Dry, Well Approximated, Steri Strips Psychiatric: Yes: WNL, Alert, Oriented Labs Lab Results: CBC, BMP 07/23/18 07:30 07/23/18 07:30 Assessment/Plan POD 2 SP myomectomy Plan DC home if stable
[2018-07-24] MEDS: SIMETHICONE 80 MG TAB.CHEW (FP) PO PRN (10:07)
[2018-07-24] MEDS: ENOXAPARIN NA (PORCINE) 40 MG/0.4 ML DISP.SYRIN SQ SCH (10:08)
[2018-07-24] MEDS: FERROUS GLUCONATE 324 MG TAB (FP) PO SCH (10:14)
[2018-07-24 13:04] VITALS: BP 106/62; PULSE 100
== END 2018-07-24 11:45 | disposition home or self-care (01) | DRG 743 ==
LOC: JASU-SURG 06:06 → JASUSAT 06:06 → J3W 12:13 → JASUSAT 07-23 15:41 → EDUNIT# 08-16 08:00
PROVIDERS: ADMIT Obstetrics & Gynecology; ATTEND Obstetrics & Gynecology
PROC: 0UB90ZZ Excision of Uterus, Open Approach (ICD-10-PCS; principal; 2018-07-22 08:00)
DX: D25.9 Leiomyoma of uterus, unspecified (principal); D64.9 Anemia, unspecified
CPT/HCPCS: 36415; 80048; 84703; 85025; 86850; 86900; 86901; 88305-TC; 94010; 94760; J0131